=== PATIENT | female | born 1985 | race Hispanic/Latino ===

== ENCOUNTER → 2018-08-08 | Day surgery (SDC) | payer MEDICARE ==
[~2018-08-08] MED LIST: BOTULINUM TOXIN TYPE A 100 UNIT VIAL IM ONE; CEFTRIAXONE SOD 1 GM VIAL ONE; DEXAMETHASONE SOD PHOS INJ 4 MG/ML VIAL IV ONE; ENABLEX15 MG PO; FENTANYL CITRATE/PF 100MCG/2 ML INJ ONE; IOPAMIDOL 610MG/1ML 300 MG/ML VIAL IV ONE; LEVOTHYROXINE25 MCG PO; LIDOCAINE HCL 2% LOCAL INJ 5 ML SDV VIAL INJ ONE; MIDAZOLAM HCL 2 MG/2 ML VIAL ONE; NITROFURANTOIN100 MG PO; ONDANSETRON HCL INJ 2 MG/ML VIAL IV ONE; PROPOFOL IV EMULSION 10 MG/ML 20 ML VIAL IV ONE; SEVOFLURANE INHAL SOLN 250 ML PEN BTL INH ONE; VESICARE5 MG PO
--- NOTE | 2018-09-23 01:46 | Operative Report ---
DATE OF PROCEDURE: August 08, 2018 PREOPERATIVE DIAGNOSES 1. Refractory urge incontinence. 2. Urinary tract infection. 3. Grade-2 cystocele. 4. Mild rectocele. POSTOPERATIVE DIAGNOSES 1. Refractory urge incontinence. 2. Urinary tract infection. 3. Grade-2 cystocele. 4. Mild rectocele. OPERATIONS PERFORMED 1. Cystourethroscopy with bilateral ureteral catheterization and retrograde ureteropyelography (separate procedure performed for the urinary tract infections). 2. Interpretation of retrograde ureteropyelography. 3. Cystourethroscopy with intravesical injection of Botox (separate procedure performed for diagnosis of the refractory urge incontinence). 4. Pelvic examination under anesthesia. ANESTHESIA: General. COMPLICATIONS: None. CLINICAL SUMMARY: Naomi Ravi is a 32-year-old woman with a severely overactive bladder. She has refractory urge incontinence. She has responded to her regular scheduled Botox injections. She and the family are aware of the risks of bleeding, infection, injury to adjacent structures, need for additional procedures, and elected to proceed. OPERATIVE PROCEDURE IN DETAIL: Informed consent was verified. Naomi Ravi was properly identified, taken to operating room, and placed on the cystoscopy table in supine position. Anesthesia was uneventfully begun. The patient was then carefully and gently repositioned in the dorsal lithotomy position with all pressure points well padded. Her genitalia were prepared and draped in usual sterile fashion. A 22.5-Tajik cystoscope sheath with obturator in place was atraumatically inserted in patient's urethra. Panendoscopy of urinary bladder revealed grade-1 trabeculations, but no tumors, no stones, no diverticula. Normally positioned and configured ureteral orifices were identified. An 8-Tajik catheter was used to cannulate each ureter and retrograde ureteropyelography was performed. Interpretation retrograde ureteropyelography: Contrast was instilled in retrograde fashion bilaterally. There were no tumors, no stones, and no diverticula. Unobstructed drainage was observed bilaterally fluoroscopically. The patient's bladder was drained. The cystoscope was withdrawn. The patient's bladder was drained. We then proceeded with dissolving Botox in sterile saline. We then proceeded with injecting 1 mL aliquots in an even distribution throughout the supratrigonal bladder. The patient's bladder was again drained. The cystoscope was withdrawn. Pelvic examination under anesthesia revealed a grade-2 cystocele, grade-1 rectocele. No abnormal palpable pelvic masses could be appreciated. There were no obviously suspicious mucosal lesions. The patient was then uneventfully reversed from anesthesia and taken to recovery room in stable condition. There were no complications to the procedure. She tolerated procedure well. Explicit postop instructions were given. Will follow the patient up in the office. Job#: [id number] CQ cc:YANA CHOI MD
== END | disposition home or self-care (01) ==
LOC: OR 05:02
PROVIDERS: ATTEND Urology
DX: N39.41 Urge incontinence (principal); N39.0 Urinary tract infection, site not specified; N81.10 Cystocele, unspecified; N81.6 Rectocele; N32.81 Overactive bladder; N32.89 Other specified disorders of bladder; G80.8 Other cerebral palsy
CPT/HCPCS: 52005; 52287; 74420; 81025; C1758; J0587; J0696; J1100; J2001; J2250; J2405; Q9967

== ENCOUNTER → 2019-02-06 | Day surgery (SDC) | payer MEDICARE ==
[~2019-02-06] MED LIST changes: +BELLADONNA/OPIUM 30 MG SUPP RC ONE; -CEFTRIAXONE SOD 1 GM VIAL ONE; +CEFTRIAXONE SOD 1 GM/NS 50 ML 50 ML IV ONE; -DEXAMETHASONE SOD PHOS INJ 4 MG/ML VIAL IV ONE; +DEXAMETHASONE SOD PHOS INJ 4 MG/ML VIAL ONE; -MIDAZOLAM HCL 2 MG/2 ML VIAL ONE; -ONDANSETRON HCL INJ 2 MG/ML VIAL IV ONE; +ONDANSETRON HCL INJ 2MG/ML 2ML 2 MG/ML VIAL ONE; -PROPOFOL IV EMULSION 10 MG/ML 20 ML VIAL IV ONE; +PROPOFOL IV EMULSION 10 MG/ML 20 ML VIAL ONE; -SEVOFLURANE INHAL SOLN 250 ML PEN BTL INH ONE; +SEVOFLURANE INHAL SOLN 250 ML PEN BTL ONE
[2019-02-06 07:45] VITALS: BP 107/69
--- NOTE | 2019-03-11 06:53 | Operative Report ---
DATE OF PROCEDURE: 02/06/2019 SURGEON: Claus Lao MD PREOPERATIVE DIAGNOSES: 1. Refractory urge incontinence. 2. Urinary tract infections. POSTOPERATIVE DIAGNOSES: 1. Refractory urge incontinence. 2. Urinary tract infections. 3. Grade 2 cystocele. 4. Grade 2 rectocele. OPERATIONS PERFORMED: 1. Cystourethroscopy with bilateral ureteral catheterization and retrograde ureteropyelography (separately performed for the urinary tract infections). 2. Interpretation of retrograde ureteropyelography. 3. Cystourethroscopy with intravesical injection of Botox (surgery performed for incontinence). 4. Pelvic examination under anesthesia. ANESTHESIA: General. COMPLICATIONS: None. CLINICAL SUMMARY: Naomi Ravi is a 33-year-old woman with the above preoperative diagnoses. She was brought for the above procedure. She and the family aware of the risks of bleeding, infection, injury to adjacent structures, need for additional procedures and elected to proceed. OPERATIVE PROCEDURE IN DETAIL: Informed consent was verified. Naomi Ravi was properly identified, taken to the operating room, placed on the cystoscopy table in supine position. Anesthesia was uneventfully begun. The patient was then carefully gently repositioned in the dorsal lithotomy position with all pressure points well padded. The genitalia were prepared and draped in usual sterile fashion. The 22.5-Vietnamese cystoscope sheath with obturator in place was atraumatically inserted into the patient's urethra and bladder was drained. Panendoscopy revealed no suspicious mucosal lesions. No tumors, no stones, and no diverticula. Grade 1 trabeculations were noted. An 8-Vietnamese catheter was used to cannulate each ureter and retrograde ureteropyelogram was performed. Interpretation of retrograde ureteropyelography contrast was instilled in retrograde fashion bilaterally. There were no tumors, no stones, and no diverticula. Unobstructed drainage was observed bilaterally fluoroscopically. 200 units of Botox were dissolved and 20 mL of sterile saline, they were injected in 1 mL aliquots in an even distribution throughout the supratrigonal bladder. Once this was performed, the patient's bladder was drained. Cystoscope was withdrawn. Pelvic examination under anesthesia revealed a grade 2 cystocele and grade 2 rectocele. No abnormal palpable pelvic masses could be appreciated. There were no obvious mucosal lesions. The patient was then uneventfully reversed from anesthesia and taken to the recovery room in stable condition. Explicit postop instructions were given. We will follow the patient up in the office. MD ERON Will/DEMETRIO /[id number]
== END | disposition home or self-care (01) ==
LOC: OR 05:00
PROVIDERS: ATTEND Urology
DX: N39.41 Urge incontinence (principal); N39.0 Urinary tract infection, site not specified; N31.9 Neuromuscular dysfunction of bladder, unspecified; N81.10 Cystocele, unspecified; N81.6 Rectocele; N32.89 Other specified disorders of bladder; E03.9 Hypothyroidism, unspecified
CPT/HCPCS: 52005; 52287; 74420; 81025; C1758; J0587; J0696; J1100; J2001; J2405; J2704; Q9967

== ENCOUNTER → 2019-06-17 | Day surgery (SDC) | payer MEDICARE ==
[~2019-06-17] MED LIST changes: +B&O 60MG R/S 60 MG SUPP PR ONE; -BELLADONNA/OPIUM 30 MG SUPP RC ONE; +MIDAZOLAM HCL 2 MG/2 ML VIAL ONE
[2019-06-17 09:40] VITALS: BP 107/71
--- NOTE | 2019-08-07 06:34 | Operative Report ---
DATE OF PROCEDURE: 06/17/2019 SURGEON: Claus Lao MD PREOPERATIVE DIAGNOSES: 1. Refractory urge incontinence. 2. Urinary tract infections. POSTOPERATIVE DIAGNOSES: 1. Refractory urge incontinence. 2. Urinary tract infections. 3. Urethral hypermobility. 4. Grade 1 cystocele. OPERATIONS PERFORMED: 1. Cystourethroscopy with bilateral ureteral catheterization and retrograde ureteropyelography (separate procedure performed for the urine tract infections). 2. Interpretation of retrograde ureteropyelography. 3. Supervision of fluoroscopy, no radiologist present. 4. Cystourethroscopy with intravesical injection of Botox (separate procedure performed for the diagnosis of the incontinence). 5. Pelvic examination under anesthesia. ANESTHESIA: General. COMPLICATIONS: None. CLINICAL SUMMARY: Naomi Ravi is a 33-year-old woman with severe overactive bladder. She is on medications and she is to undergo regular Botox injections in order to maintain a low level of incontinence. She is brought for another treatment. She and the family aware of the risks of bleeding, infection, injury to adjacent structures, need for additional procedures, and elected to proceed. OPERATIVE PROCEDURE IN DETAIL: Informed consent was verified. Naomi Ravi was properly identified, taken to the operating room, placed on the cystoscopy table in supine position. Anesthesia was uneventfully begun. The patient was then carefully and gently repositioned in dorsal lithotomy position with all pressure points well padded. Her genitalia were prepared and draped in usual sterile fashion. The cystoscope sheath with obturator in place was atraumatically inserted into the patient's urethra and bladder was drained. Panendoscopy of urinary bladder revealed no suspicious mucosal lesions, no tumors, no stones, and no diverticula. Grade 2 trabeculations were noted. An 8-Zimbabwean catheter was used to cannulate each ureter and retrograde ureteropyelogram was performed. Interpretation of retrograde ureteropyelography contrast was instilled in retrograde fashion bilaterally. There were no tumors, no stones, no diverticula. Unobstructed drainage was observed bilaterally fluoroscopically. 200 units of Botox were dissolved in sterile saline. They were injected in 1 mL aliquots in an even distribution throughout the supratrigonal bladder. The patient's bladder was drained. Cystoscope was withdrawn. Pelvic examination revealed urethral hypermobility. There was a grade 1 cystocele. No rectocele. No abnormal palpable pelvic masses could be appreciated. There were no suspicious lesions that could be identified. The patient was then uneventfully reversed from anesthesia and taken to recovery room in stable condition. There were no complications to the procedure. She tolerated the procedure well. Explicit postop instructions were given and we will follow the patient up in the office. Claus Lao MD [place]/MODL /[id number] cc: Deshaun Holley MD
== END | disposition home or self-care (01) ==
LOC: OR 05:50
PROVIDERS: ATTEND Urology
DX: N39.41 Urge incontinence (principal); N39.0 Urinary tract infection, site not specified; N36.41 Hypermobility of urethra; N81.10 Cystocele, unspecified; N32.81 Overactive bladder
CPT/HCPCS: 52005; 52287; 74420; 81025; C1758; J0587; J0696; J1100; J2001; J2250; J2405; J2704; J3010; Q9967